=== PATIENT | male | born 1975 | race Caucasian/White ===

== ENCOUNTER 2016-07-29 08:30 | Emergency (ER) | payer BC ==
[2016-07-29 08:55] VITALS: BP 123/81
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
== END 2016-07-29 09:39 | disposition home or self-care (01) ==
LOC: UCCORT 08:30
DX: S46.912A Strain of unspecified muscle, fascia and tendon at shoulder and upper arm level, left arm, initial encounter (principal); X50.0XXA Overexertion from strenuous movement or load, initial encounter; Y93.F2 Activity, caregiving, lifting; Y92.89 Other specified places as the place of occurrence of the external cause; Y99.0 Civilian activity done for income or pay; I10 Essential (primary) hypertension; J45.909 Unspecified asthma, uncomplicated
CPT/HCPCS: 99211; G0463

== ENCOUNTER 2016-08-12 07:08 | Emergency (ER) | payer BC ==
[2016-08-12 07:19] VITALS: BP 114/71
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
== END 2016-08-12 07:31 | disposition home or self-care (01) ==
LOC: UCCORT 07:08
DX: S43.402A Unspecified sprain of left shoulder joint, initial encounter (principal); X58.XXXA Exposure to other specified factors, initial encounter; Y93.9 Activity, unspecified; Y92.9 Unspecified place or not applicable; I10 Essential (primary) hypertension; J45.909 Unspecified asthma, uncomplicated
CPT/HCPCS: 99212; G0463

== ENCOUNTER 2016-09-18 07:06 | Emergency (ER) | payer BC ==
[2016-09-18 07:18] VITALS: BP 117/85
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
== END 2016-09-18 07:34 | disposition home or self-care (01) ==
LOC: UCCORT 07:06
DX: J06.9 Acute upper respiratory infection, unspecified (principal)
CPT/HCPCS: 99211; G0463

== ENCOUNTER 2016-10-16 07:02 | Emergency (ER) | payer BC ==
[2016-10-16 07:08] VITALS: BP 120/75
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
== END 2016-10-16 07:20 | disposition home or self-care (01) ==
LOC: UCCORT 07:02
DX: R11.2 Nausea with vomiting, unspecified (principal)
CPT/HCPCS: 99211; G0463

== ENCOUNTER 2016-12-25 07:04 | Emergency (ER) | payer BC ==
[2016-12-25 07:16] VITALS: BP 129/82
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
== END 2016-12-25 07:45 | disposition home or self-care (01) ==
LOC: UCCORT 07:04
DX: J06.9 Acute upper respiratory infection, unspecified (principal); M25.512 Pain in left shoulder; L30.9 Dermatitis, unspecified
CPT/HCPCS: 99212; G0463

== ENCOUNTER 2017-02-05 07:28 | Emergency (ER) | payer BC ==
[2017-02-05 07:38] VITALS: BP 137/82
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
== END 2017-02-05 08:04 | disposition home or self-care (01) ==
LOC: UCCORT 07:28
DX: J32.9 Chronic sinusitis, unspecified (principal); R53.83 Other fatigue; R05 Cough
CPT/HCPCS: 99211; G0463

== ENCOUNTER 2017-03-01 08:18 | Emergency (ER) | payer BC ==
[2017-03-01 08:32] VITALS: BP 138/78
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
== END 2017-03-01 08:55 | disposition home or self-care (01) ==
LOC: UCCORT 08:18
DX: B34.9 Viral infection, unspecified (principal); I10 Essential (primary) hypertension; J45.909 Unspecified asthma, uncomplicated
CPT/HCPCS: 87651; 99211; G0463

== ENCOUNTER 2017-04-05 07:12 | Emergency (ER) | payer BC ==
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
[2017-04-05 07:28] VITALS: BP 118/78
== END 2017-04-05 07:42 | disposition home or self-care (01) ==
LOC: UCCORT 07:12
DX: R51 Headache (principal); R11.2 Nausea with vomiting, unspecified
CPT/HCPCS: 99211; G0463

== ENCOUNTER 2018-01-06 09:59 | Emergency (ER) | payer BC ==
[2018-01-06 11:22] VITALS: BP 115/78
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
== END 2018-01-06 11:34 | disposition home or self-care (01) ==
LOC: UCCORT 09:59
DX: J32.9 Chronic sinusitis, unspecified (principal); F41.8 Other specified anxiety disorders
CPT/HCPCS: 99212; G0463

== ENCOUNTER 2018-03-03 07:12 | Emergency (ER) | payer BC ==
[2018-03-03 07:21] VITALS: BP 105/73
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
== END 2018-03-03 07:59 | disposition home or self-care (01) ==
LOC: UCCORT 07:12
DX: K30 Functional dyspepsia (principal)
CPT/HCPCS: 99211; G0463

== ENCOUNTER 2018-05-19 08:38 | Emergency (ER) | payer BC ==
[2018-05-19 08:58] VITALS: BP 124/75
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
== END 2018-05-19 09:15 | disposition home or self-care (01) ==
LOC: UCCORT 08:38
DX: K29.70 Gastritis, unspecified, without bleeding (principal); I10 Essential (primary) hypertension; J45.909 Unspecified asthma, uncomplicated; Z91.09 Other allergy status, other than to drugs and biological substances
CPT/HCPCS: 99211; G0463

== ENCOUNTER 2018-07-28 08:17 | Emergency (ER) | payer BC ==
[2018-07-28 08:33] VITALS: BP 117/71
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
== END 2018-07-28 09:44 | disposition home or self-care (01) ==
LOC: UCCORT 08:17
DX: B34.9 Viral infection, unspecified (principal); R05 Cough; R09.81 Nasal congestion; J02.9 Acute pharyngitis, unspecified; J30.2 Other seasonal allergic rhinitis
CPT/HCPCS: 99211; G0463

== ENCOUNTER 2019-01-18 07:34 | Emergency (ER) | payer BC ==
--- OUTSIDE RECORDS SUMMARY | 2019-01-18 07:43 | XMS REPORT | Continuity of Care Document ---
:1975 External Reference #:[id number] Author Name Wilman Jones PA Address [address], [address] [place] [address] Care Team Providers Name Role Phone Aramis Villegas PA - Physician Care Team Information Corporate Secretary [phone] [employer] Carmen Mason MD - Internal Medicine Care Team Information Corporate Secretary [phone] Problems Active Problems Provider Date Benign essential hypertension Darlyn Donato PA Onset: 04/15/2017 Induratio penis plastica Eduarda Chowdhury M.D. Onset: 09/15/2018 Social History Type Date Description Comments Sex Unknown Tobacco Use Start: Unknown Never Smoked Cigarettes Smoking Status Reviewed: 09/06/18 Never Smoked Cigarettes ETOH Use Currently consumes alcohol socially Tobacco Use Start: Unknown Patient denies history of smoking Recreational Drug Use Never Used Drugs Allergies, Adverse Reactions, Alerts Description No Known Drug Allergies Medications Active Medications SIG Qnty Indications Ordering Provider Date Lisinopril-Hydrochloro 1 by mouth every Unknown thiazide day 20-25mg Tablets Ibuprofen as needed Unknown 200mg Capsules Amlodipine Besylate Yates, 5mg MD Osei Tablets Omeprazole take 1 capsule by Unknown 20mg Capsules mouth once daily Alprazolam XR Unknown 1mg Tablets ER 24HR Alprazolam Unknown 1mg Tablets Immunizations Description No Information Available Vital Signs Date Vital Result Comment 09/15/2018 1:10pm BP Systolic Sitting Right Arm 125 mmHg BP Diastolic Sitting Right Arm 85 mmHg Body Temperature 98.2 F Heart Rate 99 /min Respiratory Rate 16 /min Height 64 inches 5'4" Weight 125.00 lb BMI (Body Mass Index) 21.5 kg/m2 BSA (Body Surface Area) 1.60 m2 [place] body weight in kilograms 59 kg O2 % BldC Oximetry 99 % 08/25/2018 1:22pm BP Systolic Sitting Right Arm 124 mmHg BP Diastolic Sitting Right Arm 94 mmHg Body Temperature 98.3 F Heart Rate 81 /min Respiratory Rate 16 /min Height 64 inches 5'4" Weight 124.00 lb BMI (Body Mass Index) 21.3 kg/m2 BSA (Body Surface Area) 1.60 m2 [place] body weight in kilograms 59 kg O2 % BldC Oximetry 97 % Results Description No Information Available Procedures Description No Information Available Medical Devices Description No Information Available Encounters Type Date Location Provider Dx Diagnosis Office Visit 09/15/2018 Urology Eduarda Chowdhury N48.6 Induration penis 1:15p M.DEfraín plastica Office Visit 08/25/2018 Urology Wilman Jones N48.6 Induration penis 1:30p PA plastica Assessments Date Code Description Provider 09/15/2018 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 08/25/2018 N48.6 Induration penis plastica Wilman Jones, PA Plan of Treatment 08/27/2016 - Tono Varela M.D.[id number] Unilateral inguinal hernia, without obstruction or gangrene, not specified as recurrentComments:Truss fitting completed. Elective repair again per his schedule. Functional Status Description No Information Available Mental Status Description No Information Available Referrals Refer to Reason for Referral Status Appt Date Emmy Epps Adult Urologist ED [place] Sent [address] [place] [address] [phone]
[2019-01-18 07:44] VITALS: BP 116/79
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
== END 2019-01-18 08:36 | disposition home or self-care (01) ==
LOC: UCCORT 07:34
DX: K29.70 Gastritis, unspecified, without bleeding (principal); R11.0 Nausea; R51 Headache; J45.909 Unspecified asthma, uncomplicated; I10 Essential (primary) hypertension; Z91.09 Other allergy status, other than to drugs and biological substances
CPT/HCPCS: 99211; G0463

== ENCOUNTER 2019-03-01 07:37 | Emergency (ER) | payer BC ==
[2019-03-01 07:52] VITALS: BP 114/67
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
== END 2019-03-01 08:11 | disposition home or self-care (01) ==
LOC: UCCORT 07:37
DX: K30 Functional dyspepsia (principal); K21.9 Gastro-esophageal reflux disease without esophagitis; Z91.09 Other allergy status, other than to drugs and biological substances; Z79.899 Other long term (current) drug therapy
CPT/HCPCS: 99211; G0463

== ENCOUNTER 2019-05-28 10:30 | Emergency (ER) | payer BC ==
[2019-05-28 11:42] VITALS: BP 138/82
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
== END 2019-05-28 12:14 | disposition home or self-care (01) ==
LOC: UCCORT 10:30
DX: R19.7 Diarrhea, unspecified (principal); R53.83 Other fatigue; I10 Essential (primary) hypertension; F41.9 Anxiety disorder, unspecified; Z79.899 Other long term (current) drug therapy; Z91.09 Other allergy status, other than to drugs and biological substances
CPT/HCPCS: 99211; G0463